=== PATIENT | male | born 1980 | race Hispanic/Latino ===

== ENCOUNTER 2017-01-04 17:28 | Emergency (ER) | payer SELFPAY ==
[2017-01-04] MEDS ORDERED: Adacel (T-DAP) 0.5 ML VIAL ONE (18:40)
[2017-01-04] MEDS ORDERED: Bacitracin Zinc 1 Packet ONE (19:20)
--- NOTE | 2017-01-04 20:26 | RAD ---
LEFT HAND THREE VIEWS: 01/04/17 HISTORY: 36-year-old male who punctured his hand using a drill. No specific area of clinical concern is noted. No evidence for acute fracture or dislocation. No opa que foreign body. IMPRESSION: Unremarkable left hand. POS: [facility]
== END 2017-01-04 19:25 | disposition home or self-care (01) ==
LOC: ERS 17:28
DX: S61.432A Puncture wound without foreign body of left hand, initial encounter (principal); F17.210 Nicotine dependence, cigarettes, uncomplicated; W29.8XXA Contact with other powered hand tools and household machinery, initial encounter
CPT/HCPCS: 90471; 90715

== ENCOUNTER 2020-03-24 13:21 | Emergency (ER) | payer SELFPAY ==
--- NOTE | 2020-03-24 14:18 | RAD ---
RIGHT SHOULDER THREE VIEW 03/24/20 HISTORY: Shoulder pain. COMPARISON: Chest radiograph 10/13/06. FINDINGS: There is no acute fracture. Mild elevation of the distal right clavicle relative to the acromion, age indeterminate. Visualized ribs are intact. IMPRESSION: Mild right distal clavicular elevation relative to the acromion, age indeterminate for injury. No sig nificant soft tissue swelling. POS: [facility]
== END 2020-03-24 14:48 | disposition home or self-care (01) ==
LOC: ERS 13:21
DX: M25.511 Pain in right shoulder (principal); F17.210 Nicotine dependence, cigarettes, uncomplicated; V43.62XA Car passenger injured in collision with other type car in traffic accident, initial encounter

== ENCOUNTER 2021-03-22 00:03 | Emergency (ER) | payer SELFPAY | END 2021-03-22 00:38 | disposition home or self-care (01) | LOC: ERS 00:03 | DX: S81.812A Laceration without foreign body, left lower leg, initial encounter (principal); F17.210 Nicotine dependence, cigarettes, uncomplicated; W26.8XXA Contact with other sharp object(s), not elsewhere classified, initial encounter | CPT/HCPCS: 12001 ==

== ENCOUNTER 2021-04-05 11:14 | Emergency (ER) | payer SELFPAY ==
[2021-04-05] MEDS ORDERED: HYDROcodone/Acetaminophen 7.5/325 mg Tablet ONE (13:39)
== END 2021-04-05 15:21 | disposition home or self-care (01) ==
LOC: ERS 11:14
DX: S20.211A Contusion of right front wall of thorax, initial encounter (principal); W22.8XXA Striking against or struck by other objects, initial encounter; F17.210 Nicotine dependence, cigarettes, uncomplicated
CPT/HCPCS: 71045